=== PATIENT | female | born 1930 | race Asian ===

== ENCOUNTER 2020-01-02 09:32 | Inpatient (IN) | payer OTHER, SELFPAY ==
[~2020-01-02] VITALS: Ht 154.9 cm; Wt 53.1 kg
--- NOTE | 2020-01-02 09:32 | NUR ---
Patient BIBA BLS, transferred to bed 10. RN evaluating patient at bedside.
[2020-01-02 09:38] VITALS: BP 149/61
[2020-01-02] MEDS ORDERED: ACETAMINOPHEN 325 MG TAB PO STA (09:42)
[2020-01-02] MEDS ORDERED: AMLO5TAB PO (09:46)
[2020-01-02] MEDS ORDERED: ATEN50TA8 PO (09:46)
--- NOTE | 2020-01-02 09:52 | NUR ---
EMT AT BEDSIDE FOR EKG
--- NOTE | 2020-01-02 10:00 | NUR ---
89/F BIBA FROM HOME BLS C/O SOB X FEW DAYS, PT IS CONFIRMED +COVID FROM [facility] 10 DAYS AGO. PT 98% ON ROOM AIR. NO RESP DISTRESS, TACHYNEA, HYPOXIA, ACCESSORY MUSCLE USE AT THIS TIME. SPEAKING FULL CLEAR SENTENCES WITHOUT NOTICEABLE SOB. VSS, CONNECTED TO BEDSIDE MONITOR. PT STATES HAS BEEN HAVING FEVER AT HOME, AFEBRILE IN TRIAGE. DENIES PAIN. HX: HTN, POLIO
--- NOTE | 2020-01-02 10:00 | NUR ---
22G IV placed to pts lt hand, blood and cultures drawn at this time.
[2020-01-02 10:16] LABS: BASOPHILS % (AUTO) 0.2 % (0.0-2.0); EOSINOPHILS % (AUTO) 0.6 % (0.0-4.0); HEMATOCRIT 41.6 % (36-48); HEMOGLOBIN 13.8 g/dL (12.0-16.0); LYMPHOCYTES # (AUTO) 1.2 K/uL (2.5-16.5); LYMPHOCYTES % (AUTO) 16.2 % (20.5-51.1); MEAN CORPUSCULAR HEMOGLOBIN 30 pg (27-31); MEAN CORPUSCULAR HGB CONC 33 g/dL (33-37); MEAN CORPUSCULAR VOLUME 90.3 fL (80-94); MONOCYTES # (AUTO) 0.6 K/uL (0.8-1.0); MONOCYTES % (AUTO) 8.1 % (1.7-9.3); NEUTROPHILS # (AUTO) 5.7 K/uL (1.8-7.7); NEUTROPHILS % (AUTO) 74.9 % (42.2-75.2); PLATELET COUNT (AUTO) 289 K/uL (140-450); RED BLOOD CELL COUNT(AUTO) 4.61 MIL/uL (4.20-5.40); RED CELL DISTRIBUTION WIDTH 13.2 % (11.6-13.7); WHITE BLOOD COUNT (AUTO) 7.6 K/uL (4.8-10.8)
--- NOTE | 2020-01-02 10:18 | NUR ---
X-Ray at bedside.
--- NOTE | 2020-01-02 10:21 | NUR ---
CXR AT BEDSIDE
--- NOTE | 2020-01-02 10:25 | NUR ---
Andrew olmstead in ED - 01/02/20 at [address] KHANNA, ONLY ADMIN 2L NS BOLUS X1, DO NOT ADMIN IT Q1H ORDERED
[2020-01-02 10:27] LABS: ANION GAP 14.4 (8-16); CARBON DIOXIDE 25.9 mmol/L (21-32); CHLORIDE 103 mmol/L (98-107); CREATININE 0.7 mg/dL (0.6-1.3); GLUCOSE 96 mg/dL (74-106); POTASSIUM 3.3 mmol/L (3.5-5.1); SODIUM SERUM 140 mmol/L (136-145); UREA NITROGEN, BLOOD 20 mg/dL (7-18)
[2020-01-02 10:29] LABS: PROTHROMBIN TIME 10.3 secs (10.8-13.4)
[2020-01-02 10:32] LABS: LACTATE DEHYDROGENASE 268 U/L (81-234)
[2020-01-02 10:34] LABS: ALBUMIN 2.9 g/dL (3.4-5.0); ASPARTATE AMINOTRANSFERASE 30 U/L (15-37); TOTAL BILIRUBIN 0.8 mg/dL (0.0-1.0)
[2020-01-02 10:35] LABS: C-REACTIVE PROTEIN QUANT < 0.2 mg/dL (0.0-0.9)
[2020-01-02 10:50] LABS: BILIRUBIN,URINE NEGATIVE (NEGATIVE); BLOOD, URINE NEGATIVE (NEGATIVE); COLOR,URINE YELLOW (YELLOW); LEUKOCYTE ESTERASE ,URINE TRACE (NEGATIVE); NITRITE, URINE NEGATIVE (NEGATIVE); UGLUCOSE NEGATIVE (NEGATIVE)
[2020-01-02 11:02] LABS: APPEARANCE,URINE SLIGHTLY HAZY (CLEAR)
[2020-01-02 11:03] LABS: RBC,URINE NONE SEEN /HPF (0-5); WBC,URINE 0-5 /HPF (0-5)
[2020-01-02 11:03] LABS: RSV NEGATIVE (NEGATIVE)
--- NOTE | 2020-01-02 11:17 | NUR ---
DR. KHANNA SPEAKING W/ PT AT BEDSIDE
--- NOTE | 2020-01-02 12:10 | NUR ---
PT RESTING IN BED, NO OTHER NEEDS OTHER THAN WARM BLANKET WHICH HAS BEEN PROVIDED TO PT.
--- NOTE | 2020-01-02 12:52 | NUR ---
ASKED LAB TO DRAW TROPONIN NOW--NEW ORDER
--- NOTE | 2020-01-02 13:04 | NUR ---
Lab at bedside
[2020-01-02] MEDS ORDERED: APIXABAN 2.5 MG TAB PO SCH (13:10)
--- NOTE | 2020-01-02 13:22 | NUR ---
Pt states she is hungry at this time. Food tray ordered for pt
[2020-01-02] MEDS ORDERED: ASPIRIN 81 MG TAB.CHEW PO STA (14:05)
[2020-01-02] MEDS ORDERED: DOCUSATE SODIUM 100 MG GELCAP PO PRN (14:15)
[2020-01-02] MEDS ORDERED: MAG SULF 2000 MG/WATER PREMIX 50 ML IV PRN (14:15)
[2020-01-02] MEDS ORDERED: ONDANSETRON 4 MG/2 ML VIAL IVP PRN (14:15)
[2020-01-02] MEDS ORDERED: ACETAMINOPHEN 325 MG TAB PO PRN (14:15)
[2020-01-02] MEDS ORDERED: POTASSIUM CHLORIDE 10 MEQ TABER PO PRN (14:15)
[2020-01-02] MEDS ORDERED: MORPHINE SULFATE 2 MG/ML SYR IVP PRN (14:15)
[2020-01-02] MEDS ORDERED: ASPIRIN 325 MG TAB ONE (14:40)
--- NOTE | 2020-01-02 14:40 | NUR ---
ASSISTED PT TO SET UP FOOD TRAY
--- NOTE | 2020-01-02 15:24 | NUR ---
PT REFUSED IVF CONNECTED AT THIS TIME. PT IS DRINKING PO FLUIDS.
[2020-01-02] MEDS: NACL 0.9% 1,000 ML IV SCH ×2 (15:26→21:53)
[2020-01-02] MEDS: LORazepam 2 MG/ML VIAL IVP PRN (15:34)
--- NOTE | 2020-01-02 15:34 | NUR ---
PT ANXIOUS, CONTINUOUSLY YELLING "HELP ME! PLEASE! HELP" WHEN STAFF ENTERS ROOM, PT STATES "PLEASE, GIVE ME A ROOM, PLEASE. I NEED A ROOM TO BE COMFORTABLE". I INFORMED PT SHE IS IN A ROOM NOW IN ER DUE TO NO BEDS AVAILABLE ON HOSPITAL FLOOR. PT STATES "NO, THIS IS NOT A ROOM, THIS IS A.....THIS IS A ....THIS IS NOT A ROOM. I NEED A ROOM TO BE COMFORTABLE".
--- NOTE | 2020-01-02 15:34 | NUR ---
ADMINISTERED ATIVAN PRN ANXIETY
--- NOTE | 2020-01-02 18:06 | NUR ---
PT RESTING IN BED, RESPIRATIONS EVEN AND UNLABORED. NAD.
--- NOTE | 2020-01-02 19:13 | NUR ---
REPORT TO MARTIN PACE. TRANSFER OF CARE AT THIS TIME.
[2020-01-02] MEDS ORDERED: ZOLPIDEM 10 MG TAB PO PRN (21:00)
--- NOTE | 2020-01-02 21:20 | NUR ---
RECEIVED BEDSIDE REPORT FROM HERNANDEZ PARTIDA RN. PT IS AAOX4. RESPIRATIONS ARE EQUAL AND UNLABORED ON ROOM AIR. LUNG SOUNDS ARE DIMINISHED AT LOWER LOBES. SKIN IS INTACT. IV ON LW 22G SL ORDER FOR NS AT 80ML/H WILL CONNECT. C/C SOB. DX:COVID + PT TESTED + X 10DAYS AGO. PT LIVES ALONE PER PT FRIEND BROUGHT HER TO HOSPITAL. PT ON DROPLET ISO SIGN AT DOOR. ON FALL PRECAUTION. MRSA SWAB OBTAINED. ORIENTED PT TO ROOM, STAFF, CALL LIGHT. POC DISCUSSED WITH PT. CALL LIGHT IS WITHIN REACH. WILL CONTINUE TO MONITOR.
--- NOTE | 2020-01-02 21:29 | NUR ---
PT ADMITTED TO THE CARE OF DR. CORNELIUS. ADMITTED TO [facility] ROOM 116. REPORT GIVEN TO NUNO SALAZAR
[2020-01-02 21:30] VITALS: BP 133/76
[2020-01-02] MEDS: ZINC SULF 220 MG CAP PO SCH (21:30)
--- NOTE | 2020-01-02 21:30 | NUR ---
VSS. [facility] MEDS GIVEN. ROSY MATIAS GIVEN FOR K 3.0. IVF NOW INFUSING PER ORDERS. ALL SAFETY MEASURES ARE IN PLACE. WILL CONTINUE TO MONITOR. Addendum: 01/03/20 at 0123 by Vita Jacinto RN K 3.3
--- NOTE | 2020-01-02 22:45 | NUR ---
PT IS SLEEPING COMFORTABLY IN BED WITH EYES CLOSED. CHEST RISE AND FALL NOTED. CALL LIGHT IS WITHIN REACH. WILL CONTINUE TO MONITOR.
[2020-01-03] VITALS: BP 103/57
--- NOTE | 2020-01-03 | NUR ---
VITAL SIGNS ARE WITHIN NORMAL LIMITS. CALL LIGHT IS WITHIN REACH. ALL SAFETY MEASURES ARE IN PLACE.
--- NOTE | 2020-01-03 02:00 | NUR ---
PT IS SLEEPING COMFORTABLY IN BED WITH EYES CLOSED. CHEST RISE AND FALL NOTED. CALL LIGHT IS WITHIN REACH. WILL CONTINUE TO MONITOR.
--- NOTE | 2020-01-03 04:15 | NUR ---
PATIENT IS SLEEPING COMFORTABLY IN BED WITH EYES CLOSED. CHEST RISE AND FALL NOTED. ALL SAFETY MEASURES ARE IN PLACE.
--- NOTE | 2020-01-03 06:33 | NUR ---
PATIENT HAS BEEN SCREENED AND CATEGORIZED MODERATE NUTRITION RISK. PATIENT WILL BE SEEN WITHIN 3-5 DAYS OF ADMISSION. 01/05/20-01/07/20 KELLY ZIMMERMAN MS, RDN
--- NOTE | 2020-01-03 07:24 | NUR ---
GAVE BEDSIDE REPORT TO DAY RN. PT ENDORSED IN STABLE CONDITION.
[2020-01-03 07:30] LABS: BASOPHILS % (AUTO) 0.5 % (0.0-2.0); EOSINOPHILS # (AUTO) 0.1 K/uL (0-0.4); EOSINOPHILS % (AUTO) 1.7 % (0.0-4.0); HEMATOCRIT 39.3 % (36-48); HEMOGLOBIN 12.8 g/dL (12.0-16.0); LYMPHOCYTES # (AUTO) 1.2 K/uL (2.5-16.5); LYMPHOCYTES % (AUTO) 18.2 % (20.5-51.1); MEAN CORPUSCULAR HEMOGLOBIN 30 pg (27-31); MEAN CORPUSCULAR HGB CONC 33 g/dL (33-37); MEAN CORPUSCULAR VOLUME 92.2 fL (80-94); MONOCYTES # (AUTO) 0.4 K/uL (0.8-1.0); MONOCYTES % (AUTO) 6.2 % (1.7-9.3); NEUTROPHILS # (AUTO) 4.9 K/uL (1.8-7.7); NEUTROPHILS % (AUTO) 73.4 % (42.2-75.2); PLATELET COUNT (AUTO) 226 K/uL (140-450); RED BLOOD CELL COUNT(AUTO) 4.26 MIL/uL (4.20-5.40); RED CELL DISTRIBUTION WIDTH 13.9 % (11.6-13.7); WHITE BLOOD COUNT (AUTO) 6.7 K/uL (4.8-10.8)
--- NOTE | 2020-01-03 07:30 | NUR ---
RECEIVED PT FROM TUMBLING BARREL PAINTER NURSEANGE, PT IS AWAKE, ALERT AND ORIENTED AND ON ROOM AIR, IV LINE NOTED ON THE RT FA G. 22 WITH NS INFUSING AT 80ML/HR, INTACT, PATENT, PT DENIES PAIN AND NO SIGN OF DISTRESS NOTED, WILL MONITOR PT.
[2020-01-03 07:54] LABS: ANION GAP 13.7 (8-16); CARBON DIOXIDE 25.4 mmol/L (21-32); CHLORIDE 108 mmol/L (98-107); CREATININE 0.6 mg/dL (0.6-1.3); GLUCOSE 78 mg/dL (74-106); POTASSIUM 4.1 mmol/L (3.5-5.1); SODIUM SERUM 143 mmol/L (136-145); UREA NITROGEN, BLOOD 24 mg/dL (7-18)
[2020-01-03 08:00] VITALS: BP 104/52
[2020-01-03] MEDS: atenoloL 50 MG TAB PO SCH ×2 (09:00→10:02)
[2020-01-03] MEDS: VITAMIN D 400 IU TAB PO SCH (10:00)
[2020-01-03] MEDS: amLODIPine 5 MG TAB PO SCH (10:00)
[2020-01-03] MEDS: ASCORBIC ACID 500 MG TAB PO SCH (10:00)
--- NOTE | 2020-01-03 10:00 | NUR ---
PT WAS GIVEN THE SCHEDULED AM MEDICATIONS NOW. TOLERATED, NO DISTRESS NOTED AND WILL MONITOR PT.
[2020-01-03] MEDS: ZINC SULF 220 MG CAP PO SCH ×2 (10:01→21:47)
[2020-01-03] MEDS: ENOXAPARIN 40 MG/0.4 ML SYR SUBQ SCH (10:02)
--- NOTE | 2020-01-03 12:40 | NUR ---
PT IS EATING HER LUNCH NOW, NO DISTRESS NOTED.
[2020-01-03] MEDS: LORazepam 2 MG/ML VIAL IVP PRN (14:08)
--- NOTE | 2020-01-03 14:08 | NUR ---
PT ASKED FOR LORAZEPAM BECAUSE SHE SAID THAT SHE FEELS ANXIOUS, BP IS 135/70, PULSE IS 86, O2 SATURATION IS AT 98% ON ROOM AIR, RESPIRATION IS 20/MIN, NO SIGN OF DISTRESS NOTED AND WILL MONITOR PT.
[2020-01-03] MEDS: NACL 0.9% 1,000 ML IV SCH ×2 (15:29→23:07)
[2020-01-03 16:00] VITALS: BP 135/67
--- NOTE | 2020-01-03 16:40 | NUR ---
PT IS RESTING, V/S TAKEN AND IS STABLE, NO DISTRESS NOTED, WILL MONITOR PT.
--- NOTE | 2020-01-03 19:13 | NUR ---
ENDORSED PT TO RETARDER OPERATOR NURSEDIMITRIS FOR CONTINUITY OF CARE, PT IS STABLE AT THIS TIME
--- NOTE | 2020-01-03 19:14 | NUR ---
RECD. RESTING IN BED, AWAKE, A/OX4. RESPIRATION EVEN AND UNLABORED. IV OF NS AT 80 ML/HR INFUSING, RIGHT FOREARM G22. SAFETY MEASURES ENFORCED. BED IN THE LOWEST POSITION, CALL LIGHT IN REACH. ABLE TO AMBULATE BY HERSELF. PLAN OF CARE FOR THE SHIFT DISCUSSED. VERBALIZED UNDERSTANDING. DENIES PAIN 0/10.
--- NOTE | 2020-01-03 21:47 | NUR ---
DUE PO MEDICATIONS GIVEN.
--- NOTE | 2020-01-03 23:15 | NUR ---
UNABLE TO SLEEP, MEDICATED WITH AMBIEN 10 MG. PO.
--- NOTE | 2020-01-04 00:15 | NUR ---
SLEEPING COMFORTABLY IN BED.
--- NOTE | 2020-01-04 03:00 | NUR ---
STILL SLEEPING, COMFORTABLE IN BED.
[2020-01-04] MEDS: NACL 0.9% 1,000 ML IV SCH ×2 (03:50→16:37)
--- NOTE | 2020-01-04 06:30 | NUR ---
ABLE TO SLEPT WELL. WILL ENDORSE TO AM SHIFT NURSE FOR CONTINUITY OF CARE.
--- NOTE | 2020-01-04 07:10 | NUR ---
RESPIRATORY STATUS REMAIN STABLE. NO COMPLAINT OF PAIN AND NO SOB NOTED DURING SHIFT.
--- NOTE | 2020-01-04 07:15 | NUR ---
RECEIVED REPORT FROM NIGHTSHIFT NURSE. PT RESTING IN BED. ABLE TO MAKE NEEDS KNOWN. RESPIRATIONS EVEN AND UNLABORED WITH NO SOB OR RESPIRATORY DISTRESS. SKIN WARM AND DRY TO TOUCH. IV SITE IN RFA 22G IS CLEAN, DRY, AND INTACT. SAFETY MEASURES IN PLACE. WILL CONTINUE TO MONITOR
[2020-01-04 08:00] VITALS: BP 112/74
[2020-01-04 08:15] LABS: ANION GAP 9.8 (8-16); CARBON DIOXIDE 25.8 mmol/L (21-32); CHLORIDE 108 mmol/L (98-107); CREATININE 0.5 mg/dL (0.6-1.3); GLUCOSE 93 mg/dL (74-106); POTASSIUM 3.6 mmol/L (3.5-5.1); SODIUM SERUM 140 mmol/L (136-145); UREA NITROGEN, BLOOD 16 mg/dL (7-18)
[2020-01-04 08:48] LABS: EOSINOPHILS % (AUTO) 0.5 % (0.0-4.0); HEMATOCRIT 38.1 % (36-48); HEMOGLOBIN 12.6 g/dL (12.0-16.0); LYMPHOCYTES # (AUTO) 1.1 K/uL (2.5-16.5); LYMPHOCYTES % (AUTO) 15.7 % (20.5-51.1); MEAN CORPUSCULAR HEMOGLOBIN 30 pg (27-31); MEAN CORPUSCULAR HGB CONC 33 g/dL (33-37); MONOCYTES # (AUTO) 0.5 K/uL (0.8-1.0); MONOCYTES % (AUTO) 7.4 % (1.7-9.3); NEUTROPHILS # (AUTO) 5.3 K/uL (1.8-7.7); NEUTROPHILS % (AUTO) 76.4 % (42.2-75.2); PLATELET COUNT (AUTO) 233 K/uL (140-450); RED BLOOD CELL COUNT(AUTO) 4.19 MIL/uL (4.20-5.40); RED CELL DISTRIBUTION WIDTH 13.5 % (11.6-13.7); WHITE BLOOD COUNT (AUTO) 6.9 K/uL (4.8-10.8)
[2020-01-04] MEDS: amLODIPine 5 MG TAB PO SCH (09:45)
[2020-01-04] MEDS: VITAMIN D 400 IU TAB PO SCH (09:45)
--- NOTE | 2020-01-04 09:45 | NUR ---
ADMINISTERED SCHED MED PRESCRIBED PER MD ORDER. PT TOLERATED WELL. MEDICATION EDUCATION PERFORMED. PT VERBALIZED UNDERSTANDING. SAFETY MEASURES IN PLACE. WILL CONTINUE TO MONITOR
[2020-01-04] MEDS: ZINC SULF 220 MG CAP PO SCH (09:46)
[2020-01-04] MEDS: ASCORBIC ACID 500 MG TAB PO SCH (09:46)
[2020-01-04] MEDS: ENOXAPARIN 40 MG/0.4 ML SYR SUBQ SCH (09:46)
[2020-01-04] MEDS: atenoloL 50 MG TAB PO SCH (09:46)
--- NOTE | 2020-01-04 10:40 | NUR ---
RECEIVED ORDER FOR SNF PLACEMENT. FAXED TO PATIENTS INSURANCE [facility]/ [facility] [phone] WILL FOLLOW UP FOR CONTRACTED SNF Addendum: 01/04/20 at 1136 by Ene Mackenzie CM FOLLOWED UP WITH [facility] [phone] AND SPOKE TO NOVEMBER SHE WAS NOT ABLE TO FIND THIS PATIENT IN THEIR SYSTEM. Addendum: 01/04/20 at 1212 by Ene Mackenzie CM [employer] AND STOCK HANDLER HELPER UPDATED FACE SHEET WITH CORRECT POLICY NUMBER. WILL FOLLOW UP Addendum: 01/04/20 at 1407 by Ene Mackenzie CM SPOKE WITH LUCIANA AT [facility] [phone] HE STATED THAT I FAX TO CONTRACTED FACILITIES. [facility], [facility], AND [facility]. FAXED PATIENTS CLINICALS TO SNFS WILL FOLLOW UP
--- NOTE | 2020-01-04 11:17 | NUR ---
CLAIMS ATTORNEY NOTE: SW LEFT VM WITH MIKAELA SARAVIA [phone] TO COMPLETE ASSESSMENT. SW WILL FOLLOW UP.
--- NOTE | 2020-01-04 12:15 | NUR ---
PT CALLED AND ASKED FOR ASSISTANCE TO BEDSIDE COMMODE. PATIENT TOLERATED WELL. PATIENT ASSISTED BACK INTO BED. SAFETY MEASURES IN PLACE. WILL CONTINUE TO MONITOR
--- NOTE | 2020-01-04 13:02 | NUR ---
RECEIVED FROM LAB POSITIVE COVID-19 RESULTS. COPY OF RESULTS GIVEN TO INFECTION CONTROL
[2020-01-04] MEDS: LORazepam 2 MG/ML VIAL IVP PRN (14:04)
--- NOTE | 2020-01-04 14:11 | NUR ---
PT CALLED AND SAID SHE IS FEELING ANXIOUS. PRN ATIVAN ADMINISTERED PRESCRIBED PER MD ORDER. PT TOLERATED WELL. SAFETY MEASURES IN PLACE. WILL CONTINUE TO MONITOR
--- NOTE | 2020-01-04 15:12 | NUR ---
HOURLY ROUNDING. PT RESTING IN BED. ABLE TO MAKE NEEDS KNOWN. RESPIRATIONS EVEN AND UNLABORED WITH NO SOB OR RESPIRATORY DISTRESS. SKIN WARM AND DRY TO TOUCH. SAFETY MEASURES IN PLACE. WILL CONTINUE TO MONITOR
[2020-01-04] MEDS ORDERED: ASPI-1205 PO (15:47)
[2020-01-04] MEDS ORDERED: VITC500 PO (15:47)
[2020-01-04] MEDS ORDERED: ZINC220C28 PO (15:47)
[2020-01-04] MEDS ORDERED: DEXA6TAB1 PO (15:47)
[2020-01-04] MEDS ORDERED: VITD400 PO (15:47)
[2020-01-04] MEDS ORDERED: AZIT250T3 PO (15:49)
--- NOTE | 2020-01-04 16:20 | NUR ---
PT IS AWARE OF DISCHARGE AND WOULD LIKE TO LEAVE BEFORE 18OO. FRIEND DOMINIQUE [phone] IS TAKING PATIENT HOME SINCE SON MIKAELA CANNOT. SAFETY MEASURES IN PLACE. WILL CONTINUE TO MONITOR
[2020-01-04 16:38] VITALS: BP 112/74
--- NOTE | 2020-01-04 17:45 | NUR ---
WENT DISCHARGE INSTRUCTIONS WITH PATIENT. PT IS ISOLATION SO PATIENT UNABLE TO SIGN FORMS. EDUCATED PATIENT TO VISIT ED FOR ANY SIGNS OF DISTRESS. PT VERBALIZED UNDERSTANDING. GAVE PATIENT COVID 19 HANDOUTS AND INSTRUCTED PROTOCOL FOR QUARANTINE. PATIENT VERBALIZED UNDERSTANDING. REMOVED INTACT IV CANNULA. PATIENT CHANGED INTO HER CLOTHES AND GATHERED HER BELONGING. PT IS STABLE TO GO HOME
== END 2020-01-04 17:45 | disposition home or self-care (01) | DRG 177 ==
LOC: MED 09:32 → MMU 13:39 → MTU 21:01
PROVIDERS: ADMIT General Practice; ATTEND General Practice
DX: U07.1 COVID-19 (principal); I21.A1 Myocardial infarction type 2; J12.89 Other viral pneumonia; G93.40 Encephalopathy, unspecified; I10 Essential (primary) hypertension; F03.90 Unspecified dementia, unspecified severity, without behavioral disturbance, psychotic disturbance, mood disturbance, and anxiety; R79.89 Other specified abnormal findings of blood chemistry; F99 Mental disorder, not otherwise specified; F41.9 Anxiety disorder, unspecified; Z60.2 Problems related to living alone; R73.03 Prediabetes; Z83.6 Family history of other diseases of the respiratory system; Z79.899 Other long term (current) drug therapy
CPT/HCPCS: 36415; 71045; 80048; 80053; 81001; 82550; 82728; 83036; 83605; 83615; 83735; 83880; 84484; 85025; 85379; 85384; 85610; 85651; 85730; 86140; 86886; 86900; 86901; 87040; 87081; 87086; 87420; 87804; 93005; 97110; 97116; 97161-GP; 99285; J1650; J2060; J7030; Q0092; U0003-CS